=== PATIENT | female | born 1945 | race Caucasian/White ===

== ENCOUNTER → 2017-12-23 | Outpatient (CLI) | payer BC, MEDICARE ==
[~2017-12-23] MED LIST: VYTORIN PO
[2017-12-23 12:51] LABS: FREE T4 0.74 NG/DL (0.76-1.46)
== END ==
LOC: CLAB 11:25
PROVIDERS: ATTEND Internal Medicine Cardiovascular Disease
DX: R41.3 Other amnesia (principal); R07.9 Chest pain, unspecified; Z87.891 Personal history of nicotine dependence
CPT/HCPCS: 36415; 84439; 84443